=== PATIENT | female | born 1985 | race Caucasian/White ===

== ENCOUNTER 2017-04-01 14:14 | Emergency (ER) | payer OTHER ==
--- NOTE | 2017-04-01 14:50 | EDM.PDOC ---
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 Past medical history: As per history of present illness and as reviewed below otherwise noncontributory. Surgical history: As per history of present illness and as reviewed below otherwise noncontributory. Social history: No reported history of drug or alcohol abuse. Family history: As per history of present illness and as reviewed below otherwise noncontributory. Physical exam: Deferred Diagnostics: Employee exposure panel Therapeutics: None Impression: #1 medical screening exam Definitive disposition and diagnosis as appropriate pending reevaluation and review of above. - Related Data Allergies Allergy/AdvReac Type Severity Reaction Status Date / Time No Known Allergies Allergy Verified 04/01/17 14:30 Home Meds: Home Meds . [No Known Home Meds] 04/01/17 [History] Past Medical History - Infectious Disease History Infectious Disease History: Reports: Chicken Pox - Past Surgical History Female Surgical History: Reports: Other (See Below) Other Female Surgeries/Procedures: ectopic x2 Musculoskeletal Surgical History: Reports: Other (See Below) Other Musculoskeletal Surgeries/Procedures:: R Foot Social & Family History - Family History HEENT: Reports: Glaucoma Neurological: Reports: CVA Oncologic: Reports: Breast - Tobacco Use Smoking Status *Q: Never Smoker Second Hand Smoke Exposure: Yes - Caffeine Use Caffeine Use: Reports: Coffee, Energy Drinks - Recreational Drug Use Recreational Drug Use: No ED ROS GENERAL - Review of Systems Review Of Systems: ROS reveals no pertinent complaints other than HPI. ED EXAM, GENERAL - Physical Exam Exam: See Below (See dictation) Course - Vital Signs Last Recorded V/S: Last Vital Signs Temp 36.7 C 04/01/17 14:29 Pulse 68 04/01/17 14:29 Resp 16 04/01/17 14:29 BP 118/63 04/01/17 14:29 Pulse Ox 100 04/01/17 14:29 - Orders/Labs/Meds Orders: Active Orders 24 hr Category Date Time Status HEP B SURFACE AB,QNT [REF] Stat Lab 04/01/17 14:40 Ordered HEPATITIS C AB [REF] Stat Lab 04/01/17 14:40 Ordered HIV12 AG/AB 4TH GEN W/REFLEX [CHEM] Stat Lab 04/01/17 14:40 Ordered Departure - Departure Time of Disposition: 14:49 Disposition: Home, Self-Care 01 Condition: Good Clinical Impression: Encounter for medical screening examination - Discharge Information Referrals: PCP,None [Primary Care Provider] - Additional Instructions: The following information is given to patients seen in the emergency department who are being discharged to home. This information is to outline your options for follow-up care. We provide all patients seen in our emergency department with a follow-up referral. The need for follow-up, as well as the timing and circumstances, are variable depending upon the specifics of your emergency department visit. If you don't have a primary care physician on staff, we will provide you with a referral. We always advise you to contact your personal physician following an emergency department visit to inform them of the circumstance of the visit and for follow-up with them and/or the need for any referrals to a consulting specialist. The emergency department will also refer you to a specialist when appropriate. This referral assures that you have the opportunity for followup care with a specialist. All of these measure are taken in an effort to provide you with optimal care, which includes your followup. Under all circumstances we always encourage you to contact your private physician who remains a resource for coordinating your care. When calling for followup care, please make the office aware that this follow-up is from your recent emergency room visit. If for any reason you are refused follow-up, please contact the [facility] emergency department at and asked to speak to the emergency department charge nurse. Follow-up primary medical doctor/occupational medicine return as needed as discussed - My Orders Last 24 Hours: My Active Orders 04/01/17 14:40 HEP B SURFACE AB,QNT [REF] Stat HEPATITIS C AB [REF] Stat HIV12 AG/AB 4TH GEN W/REFLEX [CHEM] Stat - Assessment/Plan Last 24 Hours: My Active Orders 04/01/17 14:40 HEP B SURFACE AB,QNT [REF] Stat HEPATITIS C AB [REF] Stat HIV12 AG/AB 4TH GEN W/REFLEX [CHEM] Stat
== END 2017-04-01 15:19 | disposition home or self-care (01) ==
LOC: MW.ED 14:14
DX: Z13.818 Encounter for screening for other digestive system disorders (principal)
CPT/HCPCS: 36415; 86706; 86803; 87389; 99282; 99283

== ENCOUNTER 2018-04-15 18:47 | Emergency (ER) | payer OTHER ==
[2018-04-15] MEDS ORDERED: Ketorolac 60 MG/2 ML SDV IM ONE (19:45)
--- NOTE | 2018-04-15 19:49 | EDM.PDOC ---
ED HPI GENERAL MEDICAL PROBLEM - General Chief Complaint: Back Pain or Injury Stated Complaint: PT OLAMIDE BACK Time Seen by Provider: 04/15/18 19:38 - History of Present Illness INITIAL COMMENTS - FREE TEXT/NARRATIVE: HISTORY AND PHYSICAL: History of present illness: The patient is a 32-year-old female who presents with complaints of chest wall pain and left-sided back pain that started yesterday after she collided with a coworker who was running. She says the coworker was running at a high-speed and carrying objects and collided with her impacting the left side of her chest wall but she did not fall to the ground pass out or blackout. She has no head pain no extremity complaints and over the course of the last 24 hours has just had discomfort that is waxing and waning in intensity that is in her left upper back and her left chest wall. She's had no fever chills or shortness of breath no abdominal complaints and no lower back pain. She had no weakness numbness or tingling in her extremities and no neck pain per se. She does have a history of migraines and says that the pain has started to trigger a migraine headache. She has taken Aleve but did not take anything today. She has been eating and drinking normally without any nausea or vomiting. She says the pain makes her feel a little lightheaded but again she has not passed out Review of systems: As per history of present illness and below otherwise all systems reviewed and negative. Past medical history: As per history of present illness and as reviewed below otherwise noncontributory. Surgical history: As per history of present illness and as reviewed below otherwise noncontributory. Social history: No reported history of drug or alcohol abuse. Family history: As per history of present illness and as reviewed below otherwise noncontributory. Physical exam: : Well-developed well-nourished female who is nontoxic and vital signs were noted by me. HEENT: Atraumatic, normocephalic, negative for conjunctival pallor or scleral icterus, mucous membranes moist, throat clear, neck supple, nontender, trachea midline. There are no midline step-offs tenderness defects of the cervical spine Lungs: Clear to auscultation, breath sounds equal bilaterally, chest wall on the left underneath the breast has some mild tenderness without any defects tenderness deformities or crepitus. Heart: S1S2, regular rate and rhythm no overt murmurs Abdomen: Soft, nondistended, nontender. NABS Negative for costovertebral tenderness. More specifically there is no left upper quadrant tenderness Pelvis: Stable nontender. Genitourinary: Deferred. Rectal: Deferred. Extremities: Atraumatic, full range of motion without defects or deficits Neurovascular unremarkable. Neuro: Awake, alert, oriented. Cranial nerves II through XII unremarkable. Cerebellum unremarkable. Motor and sensory unremarkable throughout. Exam nonfocal. Back: There are no midline step-offs tenderness defects of the thoracic or lumbar spine and no discrete posterior rib tenderness but there is a diffuse tenderness with palpation of the paraspinal musculature on the left thoracic area extending into the shoulder girdle and up into the trapezius. Diagnostics: X-ray of left ribs with chest, thoracic spine x-ray, UCG Therapeutics: Toradol Norflex Zofran Impression: Chest wall and left thoracic pain status post blunt trauma stable Definitive disposition and diagnosis as appropriate pending reevaluation and review of above. Upper Back Pain Score (Numeric/FACES): 4 - Related Data Allergies Allergy/AdvReac Type Severity Reaction Status Date / Time No Known Allergies Allergy Verified 04/15/18 19:38 Home Meds: Home Meds . [No Known Home Meds] 04/01/17 [History] Past Medical History - Past Health History Medical/Surgical History: Denies Medical/Surgical History - Infectious Disease History Infectious Disease History: Reports: Chicken Pox - Past Surgical History Female Surgical History: Reports: Other (See Below) Other Female Surgeries/Procedures: ectopic x2 Musculoskeletal Surgical History: Reports: Other (See Below) Other Musculoskeletal Surgeries/Procedures:: R Foot Social & Family History - Family History Family Medical History: Noncontributory HEENT: Reports: Glaucoma Neurological: Reports: CVA Oncologic: Reports: Breast - Tobacco Use Smoking Status *Q: Never Smoker - Caffeine Use Caffeine Use: Reports: Coffee, Energy Drinks - Recreational Drug Use Recreational Drug Use: No ED ROS GENERAL - Review of Systems Review Of Systems: ROS reveals no pertinent complaints other than HPI. ED EXAM, GENERAL - Physical Exam Exam: See Below (See dictation) Course - Vital Signs Last Recorded V/S: Last Vital Signs Temp Pulse 57 L 04/15/18 19:35 Resp 18 04/15/18 19:35 BP 112/66 04/15/18 19:35 Pulse Ox 98 04/15/18 19:35 - Orders/Labs/Meds Orders: Active Orders 24 hr Category Date Time Status Ribs 2V w Chest Lt [CR] Stat Exams 04/15/18 19:45 Taken Thoracic Spine 2V [CR] Stat Exams 04/15/18 19:45 Taken Labs: Laboratory Tests 04/15/18 Range/Units 19:45 Urine HCG, Qual NEGATIVE (NEGATIVE) Meds: Medications Discontinued Medications Generic Name Dose Route Start Last Admin Trade Name [place] PRN Reason Stop Dose Admin Ketorolac Tromethamine 60 mg 04/15/18 19:45 04/15/18 20:27 Toradol IM 04/15/18 19:46 60 mg ONETIME ONE Administration Ondansetron HCl 4 mg 04/15/18 20:33 04/15/18 20:38 Zofran Odt PO 04/15/18 20:34 4 mg ONETIME ONE Administration Orphenadrine Citrate 60 mg 04/15/18 19:45 04/15/18 20:28 Norflex IM 04/15/18 19:46 60 mg ONETIME ONE Administration Departure - Departure Time of Disposition: 21:00 Disposition: Home, Self-Care 01 Condition: Good Clinical Impression: Chest wall pain Thoracic back pain Qualifiers: Chronicity: acute Back pain laterality: left Qualified Code(s): M54.6 - Pain in thoracic spine - Discharge Information Referrals: PCP,None [Primary Care Provider] - Forms: ED Department Discharge Additional Instructions: The following information is given to patients seen in the emergency department who are being discharged to home. This information is to outline your options for follow-up care. We provide all patients seen in our emergency department with a follow-up referral. The need for follow-up, as well as the timing and circumstances, are variable depending upon the specifics of your emergency department visit. If you don't have a primary care physician on staff, we will provide you with a referral. We always advise you to contact your personal physician following an emergency department visit to inform them of the circumstance of the visit and for follow-up with them and/or the need for any referrals to a consulting specialist. The emergency department will also refer you to a specialist when appropriate. This referral assures that you have the opportunity for followup care with a specialist. All of these measure are taken in an effort to provide you with optimal care, which includes your followup. Under all circumstances we always encourage you to contact your private physician who remains a resource for coordinating your care. When calling for followup care, please make the office aware that this follow-up is from your recent emergency room visit. If for any reason you are refused follow-up, please contact the [facility] emergency department at and ask to speak to the emergency department charge nurse. [facility] Primary care- Internal Medicine and Family [address] [address] Use ice to areas for the rest of today and then switch to alternating ice and heat tomorrow. Use medications as needed for pain and as prescribed. Expect aches and pains to slowly improve over the next few days to one week. Please call and schedule a follow-up appointment with your provider or one of ours in the clinic for reevaluation and further care and return to ER as needed as discussed - My Orders Last 24 Hours: My Active Orders 04/15/18 19:45 Ribs 2V w Chest Lt [CR] Stat Thoracic Spine 2V [CR] Stat - Assessment/Plan Last 24 Hours: My Active Orders 04/15/18 19:45 Ribs 2V w Chest Lt [CR] Stat Thoracic Spine 2V [CR] Stat
[2018-04-15] MEDS ORDERED: Ondansetron 4 MG Tab.DIS PO ONE (20:33)
--- NOTE | 2018-04-16 18:59 | CR ---
EXAM DATE: 04/15/18 PATIENT'S AGE: 33 Patient: MATHEW LLAMAS Facility: [place], [place] Site . Site : 1985 Study: XRay Spine Thoracic [id number] 8:25:35 PM Ordering Physician: Anna Morton Final Report: INDICATION: Pain after work related injury. TECHNIQUE: Thoracic spine 4 view. COMPARISON: None FINDINGS: Bones: Alignment is normal. No fractures or significant bone lesions. Joints: Disc spaces and facets are unremarkable. Soft tissues: Unremarkable. IMPRESSION: Unremarkable thoracic spine. Dictated by Phillip Hawley MD @ Apr 15 2018 8:30PM (Electronic Signature) Report Signed by Proxy. JUSTINA
--- NOTE | 2018-04-16 19:00 | CR ---
EXAM DATE: 04/15/18 PATIENT'S AGE: 33 Patient: MATHEW LLAMAS Facility: [place], [place] Site . Site : 1985 Study: XRay Extremity Ribs [id number] 8:26:48 PM Ordering Physician: Anna Morton Final Report: INDICATION: Trauma. Patient was tackled. TECHNIQUE: PA image of the chest and 4 views of the ribs COMPARISON: None. FINDINGS: No rib fracture or destruction. Lungs and pleural spaces clear. Heart size and pulmonary vasculature within normal limits. IMPRESSION: Negative ribs. Dictated by Bud Benitez MD @ Apr 15 2018 8:32PM (Electronic Signature) Report Signed by Proxy. JUSTINA
== END 2018-04-15 21:23 | disposition home or self-care (01) ==
LOC: MW.ED 18:47
DX: R07.89 Other chest pain (principal); M54.6 Pain in thoracic spine; W50.0XXA Accidental hit or strike by another person, initial encounter; Y93.02 Activity, running
CPT/HCPCS: 71101; 72070; 81025; 96372; 99283; A9270; J1885; J2360

== ENCOUNTER 2018-06-18 06:18 | Day surgery (SDC) | payer OTHER ==
--- NOTE | 2018-06-18 07:18 | PCM.PREANE ---
Preanesthetic Assessment - Anesthesia/Transfusion/Family Hx Anesthesia History: Prior Anesthesia Reaction Family History of Anesthesia Reaction: No Transfusion History: No Prior Transfusion(s) - Review of Systems General: No Symptoms Pulmonary: No Symptoms Cardiovascular: No Symptoms Gastrointestinal: No Symptoms Neurological: No Symptoms Other: Reports: None - Physical Assessment NPO Status Date: 06/17/18 O2 Sat by Pulse Oximetry: 100 Respiratory Rate: 14 Vital Signs: Last Vital Signs Temp 97.0 F 06/18/18 06:48 Pulse 52 L 06/18/18 06:48 Resp 14 06/18/18 06:48 BP 97/61 06/18/18 06:48 Pulse Ox 100 06/18/18 06:48 Height: 5 ft 5 in Weight: 71.668 kg ASA Class: 2 Mental Status: Alert & Oriented x3 Airway Class: Mallampati = 2 Dentition: Reports: Normal Dentition ROM/Head Extension: Full Lungs: Clear to Auscultation, Normal Respiratory Effort Cardiovascular: Regular Rate, Regular Rhythm - Lab Values: Laboratory Last Values Urine HCG, Qual NEGATIVE (NEGATIVE) 06/18/18 06:40 - Allergies Allergies/Adverse Reactions: Allergies Allergy/AdvReac Type Severity Reaction Status Date / Time No Known Allergies Allergy Verified 06/16/18 09:26 - Blood Blood Available: No - Anesthesia Plan Pre-Op Medication Ordered: None - Acknowledgements Anesthesia Type Planned: MAC Pt an Appropriate Candidate for the Planned Anesthesia: Yes Alternatives and Risks of Anesthesia Discussed w Pt/Guardian: Yes Pt/Guardian Understands and Agrees with Anesthesia Plan: Yes PreAnesthesia Questionnaire - Past Health History Medical/Surgical History: Denies Medical/Surgical History HEENT History: Reports: Other (See Below) Other HEENT History: wears glasses Genitourinary History: Reports: None 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 Musculoskeletal History: Reports: Fracture Other Musculoskeletal History: hx of fx left wrist Neurological History: Reports: Concussion, Other (See Below) Other Neuro History: hx of motion sickness - Infectious Disease History Infectious Disease History: Reports: Chicken Pox - Past Surgical History Female Surgical History: Reports: Other (See Below) Other Female Surgeries/Procedures: removal of ectopic x2 Musculoskeletal Surgical History: Reports: Other (See Below) Other Musculoskeletal Surgeries/Procedures:: I&D right foot x2 - SUBSTANCE USE Smoking Status *Q: Former Smoker Tobacco Use Within Last Twelve Months: No Recreational Drug Use History: No - HOME MEDS Home Medications: Home Meds Ketorolac [Toradol] 10 mg PO ASDIRECTED PRN 06/16/18 [History] - CURRENT (IN HOUSE) MEDS Current Meds: Current Medications Hydrocodone Bitart/Acetaminophen ([place] 325-5 Mg) 1 tab PO Q4H PRN PRN Reason: Pain Bupivacaine HCl/Epinephrine Bitart (Marcaine 0.25%/Epinephrine 1:200,000) 10 ml INJECT ONETIME ONE Stop: 06/18/18 08:01 Cefazolin Sodium/Dextrose 2 gm (/ Premix) 50 mls @ 100 mls/hr IV ONETIME ONE Stop: 06/18/18 08:29 Lactated Ringer's (Ringers, Lactated) 1,000 mls @ 125 mls/hr IV ASDIRECTED LONI
[2018-06-18] MEDS ORDERED: Bupivacaine 0.25%/EPINEPHrine 1:200,000 10 ML SDV ONE (07:31)
[2018-06-18] MEDS ORDERED: Lidocaine 2% 5 ML SDV ONE (07:35)
[2018-06-18] MEDS ORDERED: Propofol 200 MG/20 ML SDV ONE (07:35)
[2018-06-18] MEDS ORDERED: Midazolam 1 MG/ML 2 ML SDV ONE (07:36)
[2018-06-18] MEDS ORDERED: fentaNYL 100 MCG/2 ML SDV ONE (07:36)
[2018-06-18] MEDS ORDERED: ceFAZolin/Dextrose,Iso-Osmotic 2 GM/50 ML Duplex Bag IV ONE (07:41)
[2018-06-18] MEDS ORDERED: ceFAZolin 2 GM in Premix Bag 1 BAG IV ONE (08:00)
[2018-06-18] MEDS ORDERED: Bupivacaine 0.25%/EPINEPHrine 1:200,000 10 ML SDV INJECT ONE (08:00)
[2018-06-18] MEDS ORDERED: Lactated Ringers 1,000 ML IV SCH (08:00)
[2018-06-18] MEDS ORDERED: Acetaminophen/HYDROcodone 325-5 MG Tab PO PRN (08:00)
--- NOTE | 2018-06-18 09:21 | PCM48HPAN ---
Post Anesthesia Note - EVALUATION WITHIN 48HRS OF ANESTHETIC Vital Signs in Normal Range: Yes Patient Participated in Evaluation: Yes Respiratory Function Stable: Yes Airway Patent: Yes Cardiovascular Function Stable: Yes Hydration Status Stable: Yes Pain Control Satisfactory: Yes Nausea and Vomiting Control Satisfactory: Yes Mental Status Recovered: Yes Resp Rate: 14 - COMMENTS/OBSERVATIONS Free Text/Narrative:: direct back to phase 2 PACU
--- NOTE | 2018-06-18 11:09 | PCM48HPAN ---
Post Anesthesia Note - EVALUATION WITHIN 48HRS OF ANESTHETIC Vital Signs in Normal Range: Yes Patient Participated in Evaluation: Yes Respiratory Function Stable: Yes Airway Patent: Yes Cardiovascular Function Stable: Yes Hydration Status Stable: Yes Pain Control Satisfactory: Yes Nausea and Vomiting Control Satisfactory: Yes Mental Status Recovered: Yes Resp Rate: 14
--- NOTE | 2018-06-18 16:08 | PCM.OPNOTE ---
- General Post-Op/Procedure Note Date of Surgery/Procedure: 06/18/18 Operative Procedure(s): excision of right index finger subcutaneous mass 1.5cm2 Pre Op Diagnosis: ganglion cyst Post-Op Diagnosis: right index finger subcutaneous mass 1.5cm2 Anesthesia Technique: Local, MAC Primary Surgeon: Natividad Soares Iron Assorter: Portia Castrejon Complications: None Condition: Good
--- NOTE | 2018-06-19 13:48 | OR ---
SURGEON: KIYA CANDELARIO MD DATE OF PROCEDURE: 06/18/2018 PREOPERATIVE DIAGNOSIS: Right index finger ganglion cyst. POSTOPERATIVE DIAGNOSIS: Right index finger subcutaneous mass, 1.5 cm2. PROCEDURE: Excision of right index finger subcutaneous mass of 1.5 cm2 with simple closure. ANESTHESIA: Local MAC. CUSTOMER STRATEGY MANAGER: KAREN Win INDICATIONS: Ms. Walker is a 33-year-old female, seen today in evaluation for a subcutaneous nodule at PIP joint of the right index finger. It is getting larger and this is her trigger finger. It is interfering with her activities. Risks and benefits of excision were discussed with her and she was in agreement to proceed. Risks were including, but not limited to, bleeding, infection, damage to underlying or overlying structures, possible need for future interventions, possible scarring. Of note, she also has some what appeared to be DIP joint ganglion, but there was some strange dimpling of the skin around this. She has been previously told these are warts. I do not think that is the actual case. Right now, they are small. The joints are still inflamed as I would expect osteoarthritis, but she is quite young for this. PROCEDURE IN DETAIL: After informed consent was obtained and placed on the chart, the patient was brought to the operating theater and laid in supine position. After adequate local MAC anesthesia was obtained, the area was prepped and draped, and a time- out was completed to confirm side and site. 0.25% Marcaine with epinephrine was injected in a digital block and the small curvilinear incision was made around the dorsum of the joint on the ulnar aspect of the finger. Dissection was carried subcutaneously around the mass itself and once well circumscribed, it was sent for pathology for diagnosis. Once adequately excised, meticulous hemostasis was obtained. It was a very clear plane underneath the mass, but not a very clear plane in the skin tissues. Once completely excised, it was irrigated and closed using 5-0 nylon stitch in a horizontal mattress fashion. She tolerated this well. The tourniquet was deflated. Meticulous hemostasis was obtained prior to closure. Once adequately closed, it was dressed with Xeroform, fluffs, and a Kerlix gauze dressing, and a 2-inch Dharmesh wrap. The patient tolerated this well. All counts and needles were correct at the end of the case. FOLLOWUP INSTRUCTIONS: The patient will see us in 10 to 14 days, sooner if any problems, questions, or concerns. She was given a prescription and was going to take [id number] medications for pain control if needed. DENISE PENA /[id number]
== END 2018-06-18 09:37 | disposition home or self-care (01) ==
LOC: MW.SDS 06:18
PROVIDERS: ATTEND Plastic Surgery
DX: L92.8 Other granulomatous disorders of the skin and subcutaneous tissue (principal); Z87.891 Personal history of nicotine dependence
CPT/HCPCS: 11422; 81025; J0690; J2001; J2250; J2704; J3010; J3490; 00400

== ENCOUNTER 2019-07-19 12:50 | Emergency (ER) | payer OTHER ==
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
--- NOTE | 2019-07-19 13:43 | CR ---
Right hand: 3 views of the right hand were obtained. Comparison: No prior hand exam is available. Soft tissue swelling is seen within the second digit. Joint spaces are fairly well preserved. No acute fracture, dislocation or other bony abnormality is identified. Impression: 1. Soft tissue swelling. 2. No bony abnormality is appreciated on right hand exam. Diagnostic code #2 Study was dictated in MDT
== END 2019-07-19 14:01 | disposition home or self-care (01) ==
LOC: MW.ED 12:50
DX: S69.91XA Unspecified injury of right wrist, hand and finger(s), initial encounter (principal); Y04.0XXA Assault by unarmed brawl or fight, initial encounter
CPT/HCPCS: 73130-26-RT; 73130-RT; 99282; 99283-25

== ENCOUNTER 2020-04-14 23:42 | Emergency (ER) | payer OTHER ==
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
--- NOTE | 2020-04-15 00:15 | CR ---
INDICATION: Status post fall with distal finger pain. COMPARISON: None available. FINDINGS: The left 2nd finger was examined with PA, lateral and oblique views for a total of three views. There is no sign of fracture or dislocation. There is no sign of radiopaque foreign body. No degenerative disease is seen. IMPRESSION: Normal left 2nd finger. Dictated by Imer Omalley MD @ Apr 15 2020 12:13AM Signed by Dr. Imer Omalley @ Apr 15 2020 12:14AM
== END 2020-04-15 00:28 | disposition home or self-care (01) ==
LOC: MW.ED 23:42
DX: S63.631A Sprain of interphalangeal joint of left index finger, initial encounter (principal); Z87.891 Personal history of nicotine dependence; W00.0XXA Fall on same level due to ice and snow, initial encounter
CPT/HCPCS: 73140-26-F1; 73140-F1; 99282; 99283-25

== ENCOUNTER 2020-07-17 17:30 | Emergency (ER) | payer OTHER ==
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
[2020-07-17 18:18] LABS: BLOOD UREA NITROGEN,BUN 11 mg/dL (7.0-18.0); CARBON DIOXIDE,CO2 28.6 mmol/L (21.0-32.0); CHLORIDE,CL 103 mmol/L (98-107); GLUCOSE RANDOM 113 mg/dL (74-106); POTASSIUM,K 3.7 mmol/L (3.5-5.1); SODIUM,NA 141 mmol/L (136-145)
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
== END 2020-07-17 18:48 | disposition home or self-care (01) ==
LOC: MW.ED 17:30
DX: Z00.00 Encounter for general adult medical examination without abnormal findings (principal)
CPT/HCPCS: 36415; 71045; 71045-26; 80053; 84703; 85025; 93005; 93010; 99282; 99284-25

== ENCOUNTER 2021-07-29 11:22 | Emergency (ER) | payer OTHER | END 2021-07-29 13:07 | disposition home or self-care (01) | LOC: MW.ED 11:22 | DX: S93.401A Sprain of unspecified ligament of right ankle, initial encounter (principal); Z88.5 Allergy status to narcotic agent; W00.0XXA Fall on same level due to ice and snow, initial encounter | CPT/HCPCS: 73610-26-RT; 73610-RT; 99283; 99283-25 ==

== ENCOUNTER 2024-05-07 17:38 | Emergency (ER) | payer OTHER ==
[2024-05-07] MEDS: Diphtheria,Pertussis(Acell),Tetanus Vaccine 0.5 ML Syringe IM ONE (18:30)
[2024-05-07 19:46] LABS: HEPATITIS C AB# 0.07 INDEX (<0.8)
== END 2024-05-07 18:42 | disposition home or self-care (01) ==
LOC: MW.ED 17:38
DX: Z77.21 Contact with and (suspected) exposure to potentially hazardous body fluids (principal); Z23 Encounter for immunization; Z75.8 Other problems related to medical facilities and other health care; Z88.5 Allergy status to narcotic agent
CPT/HCPCS: 36415; 86706; 86803; 87340; 87389; 90471; 99283-25